=== PATIENT | male | born 1965 | race Caucasian/White ===

== ENCOUNTER 2024-02-27 07:20 | Day surgery (SDC) | payer BC, SELFPAY ==
[2024-02-27] VITALS (13 sets, daily range): BP systolic 136–168; BP diastolic 72–95; BMI 25.5
[2024-02-27] MEDS: NSS 270 ML IV (08:02)
[2024-02-27] MEDS: PLAVIX 75 MG PO (08:03)
[2024-02-27] MEDS: LOW STRENGTH ASPIRIN 81 MG PO (08:03)
[2024-02-27 11:04] LABS: ACT-LR - POC 261 Seconds (116-155)
[2024-02-27 11:27] LABS: ACT-LR - POC 274 Seconds (116-155)
[2024-02-27] MEDS: NSS 1000 IV (12:36)
--- NOTE | 2024-02-27 12:57 | PTCARENOTE ---
Received pt post PCI. Right groin site w/ angioseal dressing intact, no hematoma noted. Left radial site w/ tegadern covering the attempted access site, no hematoma noted. VSS. Pt c/o 1 out of 10 'chest discomfort'. Meds as ordered. Will
monitor.
[2024-02-27 13:19] LABS: Glucose - Point of Care 113 mg/dl (70-99)
[2024-02-27] MEDS: NOVOLOG FLEXPEN-MODERATE RESISTANCE SC (13:45)
[2024-02-27] MEDS: ZESTRIL 5 MG PO ×2 (13:46→20:31)
[2024-02-27] MEDS: IMDUR (EXTENDED RELEASE) 30 MG PO (13:46)
[2024-02-27] MEDS: LOPRESSOR 100 MG PO ×2 (13:46→20:33)
[2024-02-27] MEDS: NORVASC 2.5 MG PO ×2 (13:46→20:31)
[2024-02-27] MEDS: LASIX 20 MG IV (15:04)
--- NOTE | 2024-02-27 15:30 | ITS.CL.CATH ---
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
Cardiac Catheterization
Procedure Report:
LEFT HEART CATHETERIZATION AND CORONARY INTERVENTION
Date of Procedure: February 27, 2020
Referring: Richie Franco, Yaquelin Velázquez MD, [facility], [facility]
PROCEDURES:
1. Left catheterization, coronary angiogram.
2. Selective graft angiography.
3. Ultrasound-guided access.
3. Successful percutaneous coronary artery intervention of an 80 to 85% FOSTER to LAD anastomotic lesion with a 2.5 x 15 mm Medtronic Madhu frontier drug-eluting stent, postdilated using a 2.5 x 12 mm NC balloon at 18 connie with an excellent
angiographic result.
INDICATION: Patient is a 58-year-old gentleman with past medical history of hypertension, hyperlipidemia, type 2 diabetes mellitus, obstructive sleep apnea on CPAP, ocular migraines, remote smoker, quit more than 10 years ago with NSTEMI about a
year ago found to have significant multivessel coronary artery disease without percutaneous options referred for CT surgery, status post turndown at [facility] with subsequent second opinion at [facility] status post
three-vessel coronary artery bypass grafting in April 2023 with FOSTER to LAD, saphenous vein graft to OM and saphenous vein graft to diagonal who is now being referred for left heart catheterization and graft angiography for progressively worsening
exertional angina despite up titration of medical therapy.
ACCESS:
1. Right common femoral artery, 6 American sheath, under ultrasound guidance using a micropuncture kit. Of note left radial artery access was attempted and despite excellent flow, we could not successfully advance the wire and therefore these
attempts were aborted.
HEMODYNAMICS : (mmHg)
AO (s/d) : 181/90
LV (s/d) : 187/12
LVEDP : 27
CORONARY FINDINGS
DOMINANCE: Codominant
LEFT MAIN: The left main artery is a large-caliber vessel which gives rise to a left anterior descending artery and a codominant left circumflex artery. There is 30% distal tapering.
LEFT ANTERIOR DESCENDING: The left anterior descending artery is a medium caliber vessel which gives rise to multiple small diagonal branches. There is 50 to 60% ostial LAD stenosis. Proximal to mid LAD has diffuse, tubular up to 80% stenosis at
the level of the diagonal takeoff. Competitive flow is noted from a patent FOSTER graft with a 80 to 85% anastomotic lesion. Apical LAD which is very small in caliber has a 85 to 90% stenosis beyond the touchdown lesion.
CIRCUMFLEX: The left circumflex artery is a medium caliber, codominant vessel which gives rise to 1 large branching obtuse marginal branch. There are serial 70-80% stenotic lesions in the circumflex proper with diffuse disease distally going into
the left posterolateral and the left PDA. OM has competitive flow noted from the patent saphenous vein graft.
RIGHT CORONARY ARTERY: The right coronary artery is a small to medium caliber, codominant vessel which gives rise to the right posterior descending artery. There is a 70 to 80% tubular proximal RCA stenosis, 70% mid RCA stenosis. Distal RCA has
moderate to severe diffuse atherosclerotic plaque.
GRAFT ANATOMY:
1. FOSTER to LAD is widely patent with an 80 to 85% anastomotic lesion. Apical LAD beyond the anastomosis also has a 85 to 90% stenosis however is very small in caliber.
2. Saphenous vein graft to OM 2 is widely patent. Proximal portion of the graft has mild plaque.
3. Saphenous vein graft to diagonal is occluded.
CORONARY INTERVENTION: The FOSTER graft was selectively engaged using a 6 American 90cm EVELIO guide catheter. A 190 cm 0.014' BMW coronary wire was navigated across the FOSTER to LAD anastomotic lesion into the diagonal branch. Multiple attempts were made
to redirect the wire into the LAD proper however we were not successful. The anastomotic lesion was predilated using a 2.5 x 12 mm semicompliant balloon and subsequently stented using a 2.5 x 15 mm Medtronic Madhu frontier drug-eluting stent and
postdilated using a 2.5 x 12 mm NC trek balloon at 18 connie with an excellent angiographic result. Patient was reloaded with 300 mg of Plavix at the end of the case. No acute complications.
SEDATION: 94 minutes of procedural sedation was utilized. An independent biomedical equipment technician was present to assist with and help manage the patient's level of consciousness and physiologic status.
RADIATION SUMMARY: Fluoro Time (min): 14.3, Dose (mGy): 695.78, DAP (Gy.cm2) : 43.6
Closure Device: Right common femoral artery was closed using a 6 American Angio-Seal with successful hemostasis.
CONCLUSIONS
1. Significant [place] multivessel coronary artery disease.
2. FOSTER to LAD is widely patent with an 80 to 85% anastomotic lesion. Apical LAD beyond the anastomosis also has a 85 to 90% stenosis however is very small in caliber.
3. Saphenous vein graft to OM 2 is widely patent. Proximal portion of the graft has mild plaque.
4. Saphenous vein graft to diagonal is occluded.
5. Successful percutaneous coronary artery intervention of an 80 to 85% FOSTER to LAD anastomotic lesion with a 2.5 x 15 mm Medtronic [place] frontier drug-eluting stent, postdilated using a 2.5 x 12 mm NC balloon at 18 connie with an excellent
angiographic result.
6. Significantly elevated LVEDP at 27 mmHg
RECOMMENDATIONS
1. Continue dual antiplatelet therapy with daily baby aspirin and Plavix 75 mg, high intensity statin and beta-nyasia as tolerated.
2. Aggressive management of cardiovascular risk factors.
3. Bedrest per protocol.
4. Diuresis to improve filling pressures.
5. Repeat up-to-date echocardiogram.
6. Referral for outpatient cardiac rehab.
COPY: JAXON Ayala
Yaquelin Velázquez MD, [facility], [facility]
--- NOTE | 2024-02-27 15:53 | CM ---
spoke to pt in room, he is prev indep, lives with his in a 2 story home with 1 step to enter. he denies any dc planning needs. plan is for dc to home when medically stable.
[2024-02-27 16:59] LABS: Glucose - Point of Care 164 mg/dl (70-99)
[2024-02-27] MEDS: NOVOLOG FLEXPEN-MODERATE RESISTANCE 1 UNITS SC (18:30)
[2024-02-27] MEDS: FLOMAX 0.400000000000000022 MG PO (18:31)
[2024-02-27] MEDS: GLUCOTROL 5 MG PO (18:31)
[2024-02-27 22:45] LABS: Glucose - Point of Care 66 mg/dl (70-99)
[2024-02-27 23:05] LABS: Glucose - Point of Care 93 mg/dl (70-99)
--- NOTE | 2024-02-27 23:30 | PTCARENOTE ---
Addendum entered by Boni Ricardo RN 02/27/24 23:36:
Pt nighttime BG 66, hypoglycemic protocol initiated. 4oz juice administered PO. Recheck in 15minutes - BG 93. Will continue to follow hypoglycemic protocol.
Original Note:
Pt received at start of shift, HR SR. R groin dressing CDI, soft. when prompted Pt states 3/10 aching at R groin insertion site, refusing tylenol. Pt denies any CP, SOB, or lightheadedness/dizziness at this time. Informed to notify RN if any
changes, call hazel within reach.
[2024-02-28 01:18] LABS: Glucose - Point of Care 90 mg/dl (70-99)
[2024-02-28 03:06] VITALS: BP 157/88
[2024-02-28 03:12] LABS: Glucose - Point of Care 97 mg/dl (70-99)
[2024-02-28 03:51] LABS: Hematocrit 34.5 % (39.0-52.0); Hemoglobin 10.5 g/dL (13.0-18.0); Mean Corp Hgb Conc. 30.4 g/dL (33.0-37.0); Mean Corpuscular Hgb 20.1 pg (27.0-31.0); Mean Platelet Volume 9.8 fL (7.4-10.4); Platelet Count 276 10^3/uL (130-400); Red Blood Cell Count 5.23 10^6/uL (4.70-6.10); Red Cell Dist. Width 17.6 % (11.5-14.5); White Blood Cell Count 9.8 10^3/uL (4.8-10.8)
[2024-02-28 04:14] LABS: Blood Urea Nitrogen 17 mg/dl (9-20); Carbon Dioxide 27 mmol/L (22-30); Chloride 104 mmol/L (98-107); Estimated Creatinine Clearance > 125 ml/min; Glucose 91 mg/dl (70-99); HDL Cholesterol 46 mg/dl; LDL Cholesterol, Calculated 45 mg/dl; Potassium 3.8 mmol/L (3.5-5.1); Sodium 136 mmol/L (135-145); Total Cholesterol 114 mg/dl (50-199); Triglyceride 116 mg/dl (10-149); Very Low Density Lipoprotein 23 mg/dl (0-30); eGFR > 60.00
[2024-02-28 07:19] VITALS: BP 135/83
[2024-02-28 07:48] LABS: Glucose - Point of Care 191 mg/dl (70-99)
--- NOTE | 2024-02-28 07:57 | W.PN.CARDCBS ---
Addendum entered and electronically signed by Yaquelin Velázquez MD 02/28/24 09:08:
I saw and examined the patient.
The Vice President Sales And Marketing's note was reviewed and I agree with the note.
Comment: Patient is status post PCI to FOSTER to LAD anastomosis where there was a 80 to 85% stenosis with a 2.5 x 15 mm Medtronic [place] frontier drug-eluting stent, postdilated with a 2.5 x 12 mm NC balloon at 18 connie with an excellent angiographic
result. He reports doing well and does not offer any complaints overnight. No chest discomfort or shortness of breath this morning.
Vital signs and lab work reviewed. On exam, he is a well-appearing gentleman out of bed in a chair in no acute distress, normal S1 and S2, no murmurs, rubs or gallops, sternotomy scar is well-healed, lungs are clear to auscultation bilaterally,
abdomen is soft, nontender, nondistended with active bowel sounds, warm extremities without significant edema. Left radial site without evidence of hematoma or bruit. Right groin site with dressing in place which is clean, dry and intact without
evidence of hematoma or bruit.
Recommendations:
1. Continue dual antiplatelet therapy with daily baby aspirin and Plavix along with high intensity statin. Given hypertension we will switch his Lopressor to Coreg 12.5 mg twice daily and uptitrate his amlodipine to 5 mg twice daily with close
monitoring of blood pressures. He knows to call our office if the blood pressures beyond 72 hours of these medication changes still persistently are above 130/80.
2. Given his echocardiogram was about a year ago and before his bypass surgery we will recheck an echocardiogram to assess biventricular function and rule out any significant valvular disease.
3. In the setting of ongoing dyspnea on exertion with elevated LVEDP, we will initiate 20 mg of daily p.o. Lasix with close monitoring of renal function and electrolytes.
If no significant issues with the echocardiogram, stable for discharge later today. We will plan for outpatient cardiology follow-up. We will also refer for outpatient cardiac rehab.
Yaquelin Velázquez MD, [facility], [facility]
Original Note:
Today's Communication / Plan
-
Echo today
d/c home later this afternoon
Impression / Plan
-
PCP: Jessee Howard MD
CDY: Sarah Young MD
58-year-old gentleman with past medical history of hypertension, hyperlipidemia, type 2 diabetes mellitus, obstructive sleep apnea on CPAP, ocular migraines, remote smoker, quit more than 10 years ago with NSTEMI about a year ago found to have
significant multivessel coronary artery disease without percutaneous options referred for CT surgery, status post turndown at [facility] with subsequent second opinion at [facility] status post three-vessel coronary artery
bypass grafting in April 2023 with FOSTER to LAD, saphenous vein graft to OM and saphenous vein graft to diagonal who is now being referred for left heart catheterization and graft angiography for progressively worsening exertional angina despite up
titration of medical therapy.
Impression:
CAD prior CABGx3 04/2023 HUP
post PCI FOSTER-LAD at anastomosis site x 1 ALECIA 02/27/24
HTN
HLD
DM2
CATHY/CPAP
GERD
Anxiety
Chronic anemia
ocular migraines
Deafness in right ear
Meningitis requiring trach at age 16
former smoker
Plan:
post PCI no cp
tele SR
Fem site stable
Elevated filling pressures IV lasix, will continue with daily PO lasix 20mg
Check echo today
DAPT ASA/Plavix
LDL 45 continue atorvastatin 80mg
HTN - bps remain elevated will continue lisinopril 5 bid, isosorbide 60 daily, increase amlodipine 5 bid, switch metoprolol 100 bid t/c to carvedilol 12.5 bid
DM - continue Jardiance, glipizide, hold metformin 48 hrs post
Cardiac rehab c/s
f/u Dr. Smith 1 mo
monitor bp at home bring log to f/u apt
home today
PROCEDURES:
1. Left catheterization, coronary angiogram.
2. Selective graft angiography.
3. Ultrasound-guided access.
3. Successful percutaneous coronary artery intervention of an 80 to 85% FOSTER to LAD anastomotic lesion with a 2.5 x 15 mm Medtronic Madhu frontier drug-eluting stent, postdilated using a 2.5 x 12 mm NC balloon at 18 connie with an excellent
angiographic result.
Progress Note - Biometrics Head
Subjective
Date of Service: February 28, 2024
no cp, sob
Objective
Labs:
02/28/24 03:12
02/28/24 03:12
Labs
Hgb 10.5 g/dL (13.0-18.0) L 02/28/24 03:12
Hct 34.5 % (39.0-52.0) L 02/28/24 03:12
Plt Count 276 10^3/uL (130-400) 02/28/24 03:12
Sodium 136 mmol/L (135-145) 02/28/24 03:12
Potassium 3.8 mmol/L (3.5-5.1) 02/28/24 03:12
BUN 17 mg/dl (9-20) 02/28/24 03:12
Creatinine 0.7 mg/dL (0.7-1.3) 02/28/24 03:12
Glucose 91 mg/dl (70-99) 02/28/24 03:12
Vital Signs and I&O:
Vital Signs
Temp Pulse Resp BP Pulse Ox
97.8 F 63 18 157/88 98
02/28/24 03:06 02/28/24 03:45 02/28/24 03:06 02/28/24 03:06 02/28/24 03:06
Vital Signs
Temp Pulse Resp BP Pulse Ox
97.8 F 63 18 157/88 98
02/28/24 03:06 02/28/24 03:45 02/28/24 03:06 02/28/24 03:06 02/28/24 03:06
Intake & Output
02/26/24 02/27/24 02/28/24 02/29/24
06:59 06:59 06:59 06:59
Intake Total 1515 / 1515
Output Total 900 / 900
Balance 615 / 615
Physical Exam
Physical Exam
NAD, AOx3
S1, S2, RRR
CTAB, non labored, no wheeze
SNTND bsx4
R fem site c/d/i, soft
[2024-02-28] MEDS: GLUCOTROL 5 MG PO (08:06)
[2024-02-28] MEDS: LOPRESSOR 100 MG PO (08:06)
[2024-02-28] MEDS: ZESTRIL 5 MG PO (08:06)
[2024-02-28] MEDS: LOW STRENGTH ASPIRIN 81 MG PO (08:06)
[2024-02-28] MEDS: NORVASC 2.5 MG PO ×2 (08:07→10:19)
[2024-02-28] MEDS: LIPITOR 80 MG PO (08:07)
[2024-02-28] MEDS: IMDUR (EXTENDED RELEASE) 30 MG PO (08:07)
[2024-02-28] MEDS: PLAVIX 75 MG PO (08:07)
[2024-02-28] MEDS: JARDIANCE 25 MG PO (08:08)
[2024-02-28] MEDS: NOVOLOG FLEXPEN-MODERATE RESISTANCE 1 UNITS SC (08:08)
[2024-02-28] MEDS: LASIX 20 MG PO (08:08)
[2024-02-28 09:14] VITALS: BMI 24.8
[2024-02-28 09:24] LABS: Glycohemoglobin (HgbA1c) 6.7 % (4.0-5.6)
[2024-02-28 11:38] VITALS: BP 140/82
[2024-02-28 11:45] LABS: Glucose - Point of Care 127 mg/dl (70-99)
[2024-02-28] MEDS: NOVOLOG FLEXPEN-MODERATE RESISTANCE SC (11:48)
--- NOTE | 2024-02-28 12:25 | W.DS.TRANS ---
DC Summary - Enrollment Eligibility Representative
-
Discharge Instructions:
Discharge Diagnosis/Procedures Angioplasty and stent to FOSTER-LAD
Diet Low Cholesterol,Diabetic, Carb Controlled
Driving Restrictions No driving for 24 hours
Blood Work Check BMP in 1 week
Other Services Cardiac Rehab
Instructions:
Stand-Alone Forms: DC Instructions- Cath/EP Lab
Changes to Home Medications: Yes
Discharge Medications:
DC Medications w/original date entered in [facility]
empagliflozin 25 mg tablet (Jardiance) 25 mg PO DAILY Diabetes 08/31/22
metformin 1,000 mg tablet 1,000 mg PO BID Diabetes 08/31/22
aspirin 81 mg chewable tablet 81 mg PO DAILY #30 tabs 11/28/22
zolpidem 5 mg tablet (Ambien) 5 mg PO HS PRN sleep/insomnia 03/14/23
atorvastatin 80 mg tablet 80 mg PO DAILY #30 tabs 03/17/23
clopidogrel 75 mg tablet 75 mg PO DAILY CAD 11/13/23
glipizide 5 mg tablet 5 mg PO BID diabetes 11/13/23
lisinopril 5 mg tablet 5 mg PO BID blood pressure 11/13/23
vitamin B complex 1 tab PO DAILY supplement 11/13/23
tamsulosin 0.4 mg capsule 0.4 mg PO QPM 02/27/24
amlodipine 5 mg tablet 5 mg PO BID #60 tabs 02/28/24
carvedilol 12.5 mg tablet 12.5 mg PO BID #60 tabs 02/28/24
furosemide 20 mg tablet (Lasix) 20 mg PO DAILY #90 tabs 02/28/24
isosorbide mononitrate 30 mg tablet,extended release 24 hr 60 mg (2 x 30 mg) PO DAILY #0 tabs 02/28/24
Home Medication Changes
stopped metoprolol, increased amlodipine, new to lasix, cardvediolol
Pending Results: No
--- NOTE | 2024-02-28 13:13 | CM ---
CM following for DC planning needs.
Pt. for DC today to home.
There are no anticipated DC needs.
== END 2024-02-28 13:19 | disposition home or self-care (01) ==
LOC: CATH 07:20
PROVIDERS: Nurse Practitioner; ATTENDING PHYSICIAN Internal Medicine Interventional Cardiology; FAMILY PHYSICIAN Family Medicine
DX: I25.118 Atherosclerotic heart disease of native coronary artery with other forms of angina pectoris (principal); I25.728 Atherosclerosis of autologous artery coronary artery bypass graft(s) with other forms of angina pectoris; I25.718 Atherosclerosis of autologous vein coronary artery bypass graft(s) with other forms of angina pectoris; E78.5 Hyperlipidemia, unspecified; G47.33 Obstructive sleep apnea (adult) (pediatric); Z87.891 Personal history of nicotine dependence; E11.9 Type 2 diabetes mellitus without complications; I11.9 Hypertensive heart disease without heart failure; I25.2 Old myocardial infarction; Z79.899 Other long term (current) drug therapy; Z79.02 Long term (current) use of antithrombotics/antiplatelets; Z79.82 Long term (current) use of aspirin; K21.9 Gastro-esophageal reflux disease without esophagitis; F41.9 Anxiety disorder, unspecified; D64.9 Anemia, unspecified; G43.109 Migraine with aura, not intractable, without status migrainosus; H91.91 Unspecified hearing loss, right ear; Z86.61 Personal history of infections of the central nervous system
CPT/HCPCS: 99152; 99153; 80048; 80061; 82962; 83036; 85027; 85347; 93005; 93306; 93459; C1725; C1760; C1769; C1874; C1887; C1894; C9604; Q9967